=== PATIENT | male | born 1995 | race Two or more races ===

== ENCOUNTER 2024-10-02 15:16 | Emergency (ER) | payer MEDICAID ==
[~2024-10-02] VITALS: Ht 167.6 cm; Wt 113.4 kg
[2024-10-02 15:32] VITALS: BP 127/75; TEMP 98.8; O2SAT 100
[2024-10-02] MEDS ORDERED: ERYT3.5O9 EACHEYE (16:20)
== END 2024-10-02 16:56 | disposition home or self-care (01) ==
LOC: ER 16:31
DX: H57.89 Other specified disorders of eye and adnexa (principal); I10 Essential (primary) hypertension; Z77.098 Contact with and (suspected) exposure to other hazardous, chiefly nonmedicinal, chemicals